=== PATIENT | female | born 1960 | race Caucasian/White ===

== ENCOUNTER 2024-02-11 17:05 | Inpatient (IN) | payer MEDICAID, OTHER ==
[~2024-02-11] VITALS: Ht 157.5 cm; Wt 113.8 kg
[2024-02-11 17:39] VITALS: PULSE 70; RESP 18; O2SAT 97
[2024-02-11] MEDS: PROPOFOL 10 MG/ML 20 ML IV ONE ×2 (18:50)
[2024-02-11 19:30] VITALS: PULSE 93; RESP 13; O2SAT 94
[2024-02-11 20:17] LABS: Basophils # (auto) 0.1 10 ^3/uL (0-0.2); Basophils % (auto) 0.5 % (0.0-2.0); Eosinophils # (auto) 0.1 10 ^3/uL (0-0.8); Eosinophils % (auto) 0.9 % (0.0-7.0); Hematocrit 48.9 % (36.0-46.0); Hemoglobin 16.6 g/dL (12.2-16.2); Lymphocytes # (auto) 1.9 10 ^3/uL (0.4-5.4); Lymphocytes % (auto) 17.4 % (10.0-50.0); Mean Corpuscular Hemoglobin 32.1 pg (28.0-32.0); Mean Corpuscular Hgb Conc. 33.9 g/dL (32.0-36.0); Mean Corpuscular Volume 94.8 fL (80.0-100.0); Monocytes # (auto) 0.7 10 ^3/uL (0-1.3); Monocytes % (auto) 6.4 % (0.0-12.0); Neutrophils # (auto) 8.3 10 ^3/uL (1.6-8.6); Neutrophils % (auto) 74.8 % (37.0-80.0); Nucleated Red Blood Cells % 0.2 %; Platelet Count (auto) 283 10^3/uL (140-450); Red Blood Cells 5.15 10^6/uL (4.0-5.20); Red Cell Distribution Width 14.4 % (11.8-14.3); White Blood Cell 11.1 10^3/uL (4.4-10.8)
[2024-02-11 20:27] LABS: Chloride 106 mmol/L (98-107); Potassium 4.3 mmol/L (3.5-5.1); Sodium 140 mmol/L (136-145)
[2024-02-11 20:28] LABS: Anion Gap 9 (5-15); Carbon Dioxide 25 mmol/L (20-30)
[2024-02-11 20:29] LABS: Calcium 9.9 mg/dL (8.7-10.4)
[2024-02-11 20:33] LABS: BUN/Creatinine Ratio 12.9 (10.0-20.0); Blood Urea Nitrogen 11 mg/dL (9-23); Glucose 93 mg/dL (74-106)
[2024-02-11] MEDS ORDERED: MORPHINE SULFATE 4 MG/ML SYR/VIAL IV PRN ×2 (20:35→22:45)
[2024-02-11] MEDS: ONDANSETRON HCL 4 MG/2 ML VIAL IV PRN (20:50)
[2024-02-11] MEDS: MORPHINE SULFATE 4 MG/ML SYR/VIAL IV PRN ×2 (20:50→22:58)
[2024-02-11] MEDS: MORPHINE SULFATE 4 MG/ML SYR/VIAL ONE (20:51)
[2024-02-11] MEDS: ONDANSETRON HCL 4 MG/2 ML VIAL ONE (20:52)
[2024-02-11] MEDS ORDERED: HYDROmorphone HCL 2 MG/ML VL/or syr IV PRN (22:19)
[2024-02-11] MEDS ORDERED: ONDANSETRON HCL 4 MG/2 ML VIAL IV PRN (23:15)
[2024-02-11 23:47] LABS: INR 1.02 (0.9-1.15); Partial Thromboplastin Time 21.2 SEC (24.5-34.5); Prothrombin Time 10.8 sec (9.3-11.8)
[2024-02-12] VITALS (9 sets, daily range): BP systolic 107–132; BP diastolic 65–92; PULSE 75–81; RESP 16–18; TEMP 97.9–98.2; O2SAT 90–96
[2024-02-12] MEDS: SODIUM CHLORIDE 0.9% 1,000 ML IV SCH (00:13)
[2024-02-12 06:32] LABS: Anion Gap 11 (5-15); Calcium 9.4 mg/dL (8.7-10.4); Carbon Dioxide 24 mmol/L (20-30); Chloride 107 mmol/L (98-107); Potassium 3.7 mmol/L (3.5-5.1); Sodium 142 mmol/L (136-145)
[2024-02-12 06:38] LABS: BUN/Creatinine Ratio 15.5 (10.0-20.0); Blood Urea Nitrogen 13 mg/dL (9-23); Glucose 114 mg/dL (74-106)
[2024-02-12] MEDS ORDERED: DICL1GEL73 TOP (10:41)
[2024-02-12] MEDS ORDERED: BACL20TA PO (10:41)
[2024-02-12] MEDS ORDERED: CETI-120 PO (10:41)
[2024-02-12] MEDS ORDERED: LEVO75TA6 PO (10:41)
[2024-02-12] MEDS ORDERED: ASPI-325 PO (10:41)
[2024-02-12] MEDS ORDERED: PREG150C63 PO (10:41)
[2024-02-12] MEDS ORDERED: FLUT50SP NAS (10:41)
[2024-02-12 10:45] LABS: Magnesium 1.8 mg/dL (1.6-2.6)
[2024-02-12 16:17] LABS: Free T3 1.99 pg/mL (2.3-4.2); Free T4 (Free Thyroxine) 0.81 ng/dL (0.89-1.76)
[2024-02-13] VITALS (9 sets, daily range): BP systolic 110–130; BP diastolic 59–78; PULSE 61–104; RESP 15–18; TEMP 97.6–99.1; O2SAT 91–97
[2024-02-13] MEDS: ACETAMINOPHEN IV 1000 MG/100ML (10MG/ML) IV ONE (06:45)
[2024-02-13] MEDS: EPINEPHrine HCL 1 MG/1 ML AMP ONE (06:47)
[2024-02-13] MEDS: CELECOXIB 100 MG CAP PO ONE (08:08)
[2024-02-13] MEDS: GABAPENTIN 400 MG CAP PO ONE (08:10)
[2024-02-13] MEDS ORDERED: ONDANSETRON HCL 4 MG/2 ML VIAL ONE (08:57)
[2024-02-13] MEDS ORDERED: KETOROLAC TROMETH 30 MG/ML 1ML VIAL ONE (08:57)
[2024-02-13] MEDS ORDERED: DexAMETHasone SOD PHOS 10MG/1ML VIAL INJ ONE (08:57)
[2024-02-13] MEDS ORDERED: LIDOCAINE 1% INJ PF 5ML AMP ONE (08:57)
[2024-02-13] MEDS ORDERED: GLYCOPYRROLATE 0.2 MG/ML 1ML VIAL ONE (08:58)
[2024-02-13] MEDS ORDERED: KETAMINE 50mg/ML 1ml syringe ONE (08:58)
[2024-02-13] MEDS ORDERED: PROPOFOL 10 MG/ML 20 ML IV ONE ×2 (08:58→09:54)
[2024-02-13] MEDS ORDERED: fentaNYL CITRATE 100 MCG/2 ML VL ONE (09:35)
[2024-02-13] MEDS ORDERED: hydrALAZINE HCL 20 MG/ML VL IV PRN (11:15)
[2024-02-13] MEDS ORDERED: ACETAMINOPHEN 325 MG TAB PO PRN (11:15)
[2024-02-13] MEDS ORDERED: ePHEDrine SULFATE 50 MG/ML AMP IV PRN (11:15)
[2024-02-13] MEDS ORDERED: ONDANSETRON HCL 4 MG/2 ML VIAL IV PRN ×2 (11:15)
[2024-02-13] MEDS ORDERED: FLUMAZENIL 0.1 MG/ML INJ 10ML MDV IV PRN (11:15)
[2024-02-13] MEDS ORDERED: NALOXONE HCL 0.4 MG/ML VIAL IV PRN (11:15)
[2024-02-13] MEDS ORDERED: fentaNYL CITRATE 100 MCG/2 ML VL IV PRN (11:15)
[2024-02-13] MEDS: HYDROmorphone HCL 2 MG/ML VL/or syr IV PRN (11:20)
[2024-02-13] MEDS: oxyCODONE HCL 5MG TAB PO PRN (11:42)
[2024-02-13] MEDS: CLINDAMYCIN 600MG IV 50 ML IV SCH (12:47)
[2024-02-13] MEDS: ceFAZolin 1GM/50ML 50 ML IV SCH (13:59)
[2024-02-13] MEDS: LACTATED RINGER'S 1,000 ML IV SCH (13:59)
[2024-02-13] MEDS: DOCUSATE SOD 100 MG CAP PO SCH (20:36)
[2024-02-14] VITALS (8 sets, daily range): BP systolic 106–135; BP diastolic 55–69; PULSE 74–94; RESP 18–21; TEMP 97.5–98.5; O2SAT 91–96
[2024-02-14] MEDS: PREGABALIN CAPSULE 75 MG CAP PO SCH (13:55)
[2024-02-14] MEDS: BACLOFEN 10 MG TAB PO SCH (13:55)
[2024-02-15] VITALS (8 sets, daily range): BP systolic 113–129; BP diastolic 51–67; PULSE 71–86; RESP 18–21; TEMP 97.5–98.3; O2SAT 94–98
[2024-02-15] MEDS: LEVOTHYROXINE SODIUM 25 MCG TAB PO SCH (05:38)
[2024-02-15] MEDS: ASPirin 81 mg TAB PO SCH (08:41)
[2024-02-15] MEDS: LORATADINE 10 MG TAB PO SCH (08:41)
[2024-02-15] MEDS: HYDROcodone-ACET 10/325MG TAB PO PRN (12:22)
[2024-02-16] VITALS (7 sets, daily range): BP systolic 114–144; BP diastolic 63–83; PULSE 76–99; RESP 16–20; TEMP 97.5–98.4; O2SAT 94–98
[2024-02-16] MEDS: BUPIVACAINE 0.25% INJ 50ML VIAL ONE (11:00)
[2024-02-16] MEDS: DexAMETHasone SOD PHOS 4 MG/1ML SDV INJ ONE (11:00)
[2024-02-16] MEDS: POVIDONE IODINE 10 % TOPICAL OINT 30GM TOP ONE (11:01)
[2024-02-16] MEDS: BUPIVACAINE HCL 50 ML ONE (11:01)
[2024-02-16] MEDS: BACITRACIN TOP OINT 1 UD PKG TOP ONE (11:01)
[2024-02-16] MEDS: ceFAZolin 2 GM/D5W100ml 100 ML IV ONE (11:01)
[2024-02-16] MEDS: BUPIVACAINE HCL 0.25% P/F 10 ML VIAL ONE (11:01)
[2024-02-16] MEDS: diphenhdrAMINE HCL 50 MG/1 ML VL IV ONE (11:11)
[2024-02-16] MEDS: methylPREDNISolone SOD SUCC 125 MG/2 ML VL ONE (11:13)
[2024-02-16] MEDS: diphenhdrAMINE HCL 50 MG/1 ML VL ONE (11:13)
[2024-02-16] MEDS: methylPREDNISolone SOD SUCC 125 MG/2 ML VL IV ONE (11:13)
[2024-02-16] MEDS: POLYETHYLENE GLYCOL 17 GM PWDR PO PRN (21:52)
[2024-02-17] VITALS (8 sets, daily range): BP systolic 101–146; BP diastolic 54–76; PULSE 63–80; RESP 16–20; TEMP 97.4–98.9; O2SAT 92–100
[2024-02-17] MEDS: BISACODYL 5 MG EC TAB PO PRN (22:54)
[2024-02-18] VITALS (7 sets, daily range): BP systolic 102–128; BP diastolic 58–72; PULSE 68–82; RESP 18–20; TEMP 97.5–98.7; O2SAT 91–97
[2024-02-18] MEDS ORDERED: BISA-65 PO (12:28)
[2024-02-18] MEDS ORDERED: HYDR-4798 PO (12:28)
== END 2024-02-18 16:50 | disposition home health service (06) | DRG 313 ==
LOC: ER 17:05 → EDBD 17:05 → OVERFLOW 23:16 → WEST WING 02-12 10:03
PROVIDERS: ADMIT Nurse Practitioner; ATTEND Internal Medicine
PROC: 0QSJ04Z Reposition Right Fibula with Internal Fixation Device, Open Approach (ICD-10-PCS; principal; 2024-02-11)
PROC: 0QSG04Z Reposition Right Tibia with Internal Fixation Device, Open Approach (ICD-10-PCS; 2024-02-11)
PROC: 0QSG04Z Reposition Right Tibia with Internal Fixation Device, Open Approach (ICD-10-PCS; 2024-02-11)
PROC: 5A09357 Assistance with Respiratory Ventilation, Less than 24 Consecutive Hours, Continuous Positive Airway Pressure (ICD-10-PCS; 2024-02-12)
DX: S82.851A Displaced trimalleolar fracture of right lower leg, initial encounter for closed fracture (principal); E03.9 Hypothyroidism, unspecified; E66.01 Morbid (severe) obesity due to excess calories; E78.5 Hyperlipidemia, unspecified; G47.30 Sleep apnea, unspecified; Z86.711 Personal history of pulmonary embolism; Z79.899 Other long term (current) drug therapy; W18.39XA Other fall on same level, initial encounter; Y93.89 Activity, other specified; Y92.89 Other specified places as the place of occurrence of the external cause; Y99.8 Other external cause status; Z68.42 Body mass index [BMI] 45.0-49.9, adult
CPT/HCPCS: 36415; 71045; 73600; 76000; 80048; 80061; 83036; 83735; 84439; 84443; 84481; 85025; 85610; 85730; 86850; 86900; 86901; 93005; 93306; 94660; 97110; 97116; 97163; 97530; G0378; J0131; J0171; J1100; J1885; J2405; J2704; J3490